=== PATIENT | male | born 1995 ===

== ENCOUNTER 2021-01-23 09:41 | Inpatient (IN) ==
[2021-01-23] MEDS ORDERED: HYDROmorphone 2 MG/1 ML VIAL IV STA (10:54)
[2021-01-23] MEDS ORDERED: HYDROmorphone 2 MG/1 ML VIAL IV PRN ×4 (10:56→14:17)
[2021-01-23] MEDS ORDERED: BISACODYL 5 MG TABLET PO PRN (10:56)
[2021-01-23] MEDS ORDERED: ONDANSETRON 4 MG/2 ML VIAL IV PRN ×3 (10:56→14:17)
[2021-01-23] MEDS ORDERED: KETOROLAC 15 MG/1 ML VIAL IV PRN (10:56)
[2021-01-23] MEDS ORDERED: ACETAMINOPHEN 325 MG TABLET PO PRN (10:56)
[2021-01-23] MEDS ORDERED: BUPIVACAINE MPF 0.25% 30 ML VIAL ONE (11:13)
[2021-01-23] MEDS ORDERED: SUCCINYLCHOLINE 200 MG/10 ML VIAL ONE (11:14)
[2021-01-23] MEDS ORDERED: ROCURONIUM 50 MG/5 ML VIAL IV ONE (11:14)
[2021-01-23] MEDS ORDERED: fentaNYL 100 MCG/2 ML VIAL ONE (11:14)
[2021-01-23] MEDS ORDERED: LIDOCAINE 2% 5 ML VIAL ONE (11:14)
[2021-01-23] MEDS ORDERED: TISSUE ADHESIVE 1 EACH APPLICATOR TOP ONE (11:14)
[2021-01-23] MEDS ORDERED: DEXAMETHASONE 4 MG/1 ML VIAL ONE (11:14)
[2021-01-23] MEDS ORDERED: ONDANSETRON 4 MG/2 ML VIAL ONE (11:14)
[2021-01-23] MEDS ORDERED: propofoL 200 MG/20 ML VIAL IV ONE (11:14)
[2021-01-23] MEDS ORDERED: LIDOCAINE 1%/EPI INJ 20 ML VIAL ONE (11:14)
[2021-01-23] MEDS: LACTATED RINGERS 1,000 ML IV SCH ×3 (11:33→15:34)
[2021-01-23] MEDS ORDERED: SEVOFLURANE 1 UNIT/15 MINUTE INH ONE ×2 (11:58→12:40)
[2021-01-23] MEDS ORDERED: PIPERACILLIN/TAZOBACTAM 3,375 MG in SODIUM CHLORIDE 0.9% 100 ML IV SCH (12:00)
[2021-01-23] MEDS ORDERED: KETOROLAC 30 MG/1 ML VIAL ONE (12:14)
[2021-01-23] MEDS ORDERED: MIDAZOLAM 2 MG/2 ML VIAL ONE (12:43)
[2021-01-23] MEDS ORDERED: MEPERIDINE 25 MG/1 ML VIAL ONE (12:52)
[2021-01-23] MEDS ORDERED: diphenhydrAMINE 50 MG/1 ML VIAL IV PRN (12:57)
[2021-01-23] MEDS ORDERED: MEPERIDINE 25 MG/1 ML VIAL IV PRN (12:57)
[2021-01-23] MEDS ORDERED: PROMETHAZINE INJ 25 MG in SODIUM CHLORIDE 0.9% 50 ML IV PRN (12:57)
[2021-01-23] MEDS ORDERED: PROMETHAZINE 25 MG/1 ML VIAL IM PRN (14:17)
[2021-01-23 14:37] LABS: Basophils # 0.1 10*3/uL (0.0-0.2); Basophils % 0.5 % (0.0-0.8); Eosinophils % 0.1 % (0.00-10.9); Hematocrit 45.4 VOL% (42.0-52.0); Hemoglobin 15.4 GM/DL (14.0-18.0); Immature Granulocytes % 1.7 %; Immature Granulocytes Absolute 0.22 #; Lymphocytes # 0.8 10*3/uL (1.4-4.0); Lymphocytes % 6.3 % (21.2-54.2); Mean Corpuscular HGB Conc 33.9 GM/DL (32-36); Mean Corpuscular Volume 95.6 FL (87-102); Mean Platelet Volume 10.8 FL (9.6-12.0); Neutrophils % 87.4 % (38.7-73.9); Platelet Count 176 T/CUMM (130-400); Red Blood Count 4.75 MC/CUMM (3.8-5.5); Red Cell Distribution Width 12.4 % (9.3-17.3); White Blood Count 13.1 T/CUMM (4-12)
[2021-01-23] MEDS ORDERED: INFLUENZA VIRUS VACCINE 0.5 ML SYRINGE IM ONE (14:49)
[2021-01-23 15:10] LABS: Band Neutrophils 31 % (0-10); Lymphocytes 7 % (20-55); Metamyelocytes 2 %; Platelet Estimate Adequate; Segmented Neutrophils 57 % (50-85); Total Cells Counted 100
[2021-01-23 15:14] LABS: Atypical Lymphocytes Few
[2021-01-23] MEDS: KETOROLAC 15 MG/1 ML VIAL IV SCH ×2 (15:35→21:06)
[2021-01-23] MEDS: PIPERACILLIN/TAZOBACTAM 3,375 MG in SODIUM CHLORIDE 0.9% 100 ML IV SCH (15:35)
[2021-01-24] MEDS: PIPERACILLIN/TAZOBACTAM 3,375 MG in SODIUM CHLORIDE 0.9% 100 ML IV SCH ×4 (00:19→23:54)
[2021-01-24] MEDS: KETOROLAC 15 MG/1 ML VIAL IV SCH ×4 (03:23→21:02)
[2021-01-24 04:53] LABS: Basophils % 0.1 % (0.0-0.8); Eosinophils % 0.1 % (0.00-10.9); Hematocrit 45.6 VOL% (42.0-52.0); Hemoglobin 15.6 GM/DL (14.0-18.0); Immature Granulocytes % 1.6 %; Immature Granulocytes Absolute 0.28 #; Lymphocytes # 1.2 10*3/uL (1.4-4.0); Mean Corpuscular HGB Conc 34.2 GM/DL (32-36); Mean Corpuscular Volume 96.4 FL (87-102); Mean Platelet Volume 11.2 FL (9.6-12.0); Neutrophils % 87.2 % (38.7-73.9); Platelet Count 195 T/CUMM (130-400); Red Blood Count 4.73 MC/CUMM (3.8-5.5); Red Cell Distribution Width 12.5 % (9.3-17.3); White Blood Count 17.7 T/CUMM (4-12)
[2021-01-24 05:14] LABS: Calcium 8.7 MG/DL (8.5-10.1); Osmolality,Calculated 273.7 MOS/KG (273-304); Potassium 3.9 MMOL/L (3.5-5.1)
[2021-01-24 05:22] LABS: Band Neutrophils 8 % (0-10); Lymphocytes 6 % (20-55); Platelet Estimate Normal; Segmented Neutrophils 80 % (50-85); Total Cells Counted 100
[2021-01-24] MEDS: ENOXAPARIN 40 MG/0.4 ML SYRINGE SUBCUT SCH (05:53)
[2021-01-24] MEDS ORDERED: PANTOPRAZOLE 40 MG TABLET PO SCH (09:00)
[2021-01-24] MEDS: LACTATED RINGERS 1,000 ML IV SCH (09:12)
[2021-01-25] MEDS: KETOROLAC 15 MG/1 ML VIAL IV SCH ×4 (02:55→20:32)
[2021-01-25 04:19] LABS: Basophils # 0.1 10*3/uL (0.0-0.2); Basophils % 0.3 % (0.0-0.8); Eosinophils # 0.1 10*3/uL (0.0-0.87); Eosinophils % 0.4 % (0.00-10.9); Hematocrit 39.9 VOL% (42.0-52.0); Hemoglobin 13.4 GM/DL (14.0-18.0); Immature Granulocytes % 2.3 %; Immature Granulocytes Absolute 0.44 #; Lymphocytes # 2.6 10*3/uL (1.4-4.0); Lymphocytes % 13.1 % (21.2-54.2); Mean Corpuscular HGB Conc 33.6 GM/DL (32-36); Mean Corpuscular Volume 96.1 FL (87-102); Mean Platelet Volume 11.6 FL (9.6-12.0); Monocytes % 5.2 % (1.7-12.7); Neutrophils % 78.7 % (38.7-73.9); Platelet Count 227 T/CUMM (130-400); Red Blood Count 4.15 MC/CUMM (3.8-5.5); Red Cell Distribution Width 12.8 % (9.3-17.3); White Blood Count 19.5 T/CUMM (4-12)
[2021-01-25 04:48] LABS: Atypical Lymphocytes Few; Band Neutrophils 7 % (0-10); Eosinophils 1 % (0-10); Hypochromasia Slight; Lymphocytes 17 % (20-55); Microcytosis Slight; Segmented Neutrophils 72 % (50-85); Total Cells Counted 100
[2021-01-25 04:49] LABS: Platelet Estimate Normal
[2021-01-25] MEDS: ENOXAPARIN 40 MG/0.4 ML SYRINGE SUBCUT SCH (06:40)
[2021-01-25] MEDS: PIPERACILLIN/TAZOBACTAM 3,375 MG in SODIUM CHLORIDE 0.9% 100 ML IV SCH ×2 (08:15→16:05)
[2021-01-26] MEDS: PIPERACILLIN/TAZOBACTAM 3,375 MG in SODIUM CHLORIDE 0.9% 100 ML IV SCH (00:13)
[2021-01-26] MEDS: KETOROLAC 15 MG/1 ML VIAL IV SCH (02:31)
[2021-01-26] MEDS: ENOXAPARIN 40 MG/0.4 ML SYRINGE SUBCUT SCH (05:20)
[2021-01-26 05:31] LABS: Basophils # 0.1 10*3/uL (0.0-0.2); Basophils % 0.4 % (0.0-0.8); Eosinophils # 0.4 10*3/uL (0.0-0.87); Eosinophils % 2.5 % (0.00-10.9); Hematocrit 40.9 VOL% (42.0-52.0); Hemoglobin 13.6 GM/DL (14.0-18.0); Immature Granulocytes % 2.7 %; Immature Granulocytes Absolute 0.46 #; Lymphocytes % 17.6 % (21.2-54.2); Mean Corpuscular HGB Conc 33.3 GM/DL (32-36); Mean Corpuscular Volume 97.6 FL (87-102); Mean Platelet Volume 10.8 FL (9.6-12.0); Monocytes % 6.7 % (1.7-12.7); Neutrophils % 70.1 % (38.7-73.9); Platelet Count 279 T/CUMM (130-400); Red Blood Count 4.19 MC/CUMM (3.8-5.5); Red Cell Distribution Width 12.9 % (9.3-17.3); White Blood Count 16.9 T/CUMM (4-12)
[2021-01-26 05:58] LABS: Eosinophils 1 % (0-10); Hypochromasia Slight; Lymphocytes 27 % (20-55); Microcytosis Slight; Platelet Estimate Adequate; Segmented Neutrophils 66 % (50-85); Total Cells Counted 100
[2021-01-26 07:44] VITALS: BP 111/57
[2021-01-26] MEDS ORDERED: CEFUROXIME 500 MG TABLET PO SCH (09:00)
== END 2021-01-26 09:29 | disposition home or self-care (01) | DRG 340 ==
LOC: EDBD → EDUNIT# → N.ED 09:41 → N.EDINP 10:56 → N.3E 11:17
PROVIDERS: ADMIT Surgery; ATTEND Surgery

== ENCOUNTER 2021-03-21 19:02 | Inpatient (IN) ==
[2021-03-21] MEDS ORDERED: ONDANSETRON 4 MG/2 ML VIAL IV PRN (20:19)
[2021-03-21] MEDS ORDERED: MORPHINE 2 MG/1 ML SYRINGE IV PRN (21:56)
[2021-03-21] MEDS ORDERED: ACETAMINOPHEN 325 MG TABLET PO PRN (21:56)
[2021-03-21] MEDS: DEXTROSE 5% NACL 0.45% 1,000 ML IV SCH (22:08)
[2021-03-21] MEDS: PIPERACILLIN/TAZOBACTAM 3,375 MG in SODIUM CHLORIDE 0.9% 100 ML IV SCH (22:08)
[2021-03-22] MEDS: VANCOMYCIN INJ 1,000 MG in SODIUM CHLORIDE 0.9% 250 ML IV SCH ×2 (02:09→13:54)
[2021-03-22 04:23] LABS: Basophils % 0.2 % (0.0-0.8); Eosinophils % 0.2 % (0.00-10.9); Hematocrit 27.5 VOL% (42.0-52.0); Hemoglobin 8.5 GM/DL (14.0-18.0); Immature Granulocytes % 1.1 %; Immature Granulocytes Absolute 0.21 #; Lymphocytes # 1.7 10*3/uL (1.4-4.0); Lymphocytes % 8.9 % (21.2-54.2); Mean Corpuscular HGB Conc 30.9 GM/DL (32-36); Mean Corpuscular Volume 93.9 FL (87-102); Mean Platelet Volume 10.2 FL (9.6-12.0); Monocytes % 7.2 % (1.7-12.7); Neutrophils % 82.4 % (38.7-73.9); Platelet Count 366 T/CUMM (130-400); Red Blood Count 2.93 MC/CUMM (3.8-5.5); Red Cell Distribution Width 14.1 % (9.3-17.3); White Blood Count 18.8 T/CUMM (4-12)
[2021-03-22 04:43] LABS: Albumin 1.8 G/DL (3.4-5.0); Bilirubin,Total 1.2 MG/DL (0.20-1.00); Calcium 8.2 MG/DL (8.5-10.1); Osmolality,Calculated 274.5 MOS/KG (273-304); Potassium 3.6 MMOL/L (3.5-5.1); Total Protein 6.4 G/DL (6.4-8.2)
[2021-03-22 04:51] LABS: Eosinophils 1 % (0-10); Hypochromasia 1+; Lymphocytes 10 % (20-55); Microcytosis 1+; Platelet Estimate Adequate; Segmented Neutrophils 84 % (50-85); Total Cells Counted 100
[2021-03-22] MEDS: PIPERACILLIN/TAZOBACTAM 3,375 MG in SODIUM CHLORIDE 0.9% 100 ML IV SCH ×3 (05:41→22:34)
[2021-03-22] MEDS: DEXTROSE 5% NACL 0.45% 1,000 ML IV SCH ×2 (05:41→14:30)
[2021-03-22 09:09] LABS: Basophils % 0.2 % (0.0-0.8); Eosinophils # 0.1 10*3/uL (0.0-0.87); Eosinophils % 0.3 % (0.00-10.9); Hematocrit 28.5 VOL% (42.0-52.0); Hemoglobin 8.9 GM/DL (14.0-18.0); Immature Granulocytes % 1.3 %; Immature Granulocytes Absolute 0.25 #; Lymphocytes # 1.4 10*3/uL (1.4-4.0); Lymphocytes % 7.2 % (21.2-54.2); Mean Corpuscular HGB Conc 31.2 GM/DL (32-36); Mean Corpuscular Volume 94.1 FL (87-102); Monocytes % 6.4 % (1.7-12.7); Neutrophils % 84.6 % (38.7-73.9); Platelet Count 401 T/CUMM (130-400); Red Blood Count 3.03 MC/CUMM (3.8-5.5); Red Cell Distribution Width 14.1 % (9.3-17.3)
[2021-03-22 09:13] LABS: Band Neutrophils 3 % (0-10); Hypochromasia 1+; Lymphocytes 8 % (20-55); Metamyelocytes 1 %; Microcytosis 1+; Segmented Neutrophils 85 % (50-85); Total Cells Counted 100
[2021-03-22 09:14] LABS: Platelet Estimate Increased
[2021-03-22] MEDS: PANTOPRAZOLE 40 MG VIAL IV SCH (10:00)
[2021-03-22 11:30] LABS: INR 1.3; PT Patient Result 14.2 SECS (10.5-12.0)
[2021-03-22] MEDS ORDERED: METHYL SALICYLATE 60 ML BOTTLE TOP PRN (15:24)
[2021-03-23] MEDS: DEXTROSE 5% NACL 0.45% 1,000 ML IV SCH ×2 (01:20→11:24)
[2021-03-23] MEDS: VANCOMYCIN INJ 1,000 MG in SODIUM CHLORIDE 0.9% 250 ML IV SCH (01:20)
[2021-03-23] MEDS: PIPERACILLIN/TAZOBACTAM 3,375 MG in SODIUM CHLORIDE 0.9% 100 ML IV SCH (05:57)
[2021-03-23] MEDS ORDERED: CEFUROXIME 500 MG TABLET PO SCH (09:00)
[2021-03-23] MEDS ORDERED: INFLUENZA VIRUS VACCINE 0.5 ML SYRINGE IM ONE (09:00)
[2021-03-23] MEDS: PANTOPRAZOLE 40 MG VIAL IV SCH (09:05)
[2021-03-23 16:14] VITALS: BP 102/51
== END 2021-03-23 18:32 | disposition home or self-care (01) | DRG 443 ==
LOC: EDUNIT# → EDBD → N.ED 19:02 → N.EDINP 20:14 → N.5E 21:59
PROVIDERS: ADMIT Surgery; ATTEND Surgery